=== PATIENT | female | born 1975 | race Two or more races ===

== ENCOUNTER 2020-03-08 16:14 | Emergency (ER) | payer OTHER ==
[~2020-03-08] VITALS: Ht 154.9 cm; Wt 90.7 kg
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
[2020-03-08] MEDS ORDERED: Methocarbamol 750mg tab ORAL ONE (17:00)
[2020-03-08] MEDS ORDERED: Ketorolac 30mg Inj IM ONE (17:00)
[2020-03-08 17:33] VITALS: BP 129/79
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
[2020-03-08] MEDS ORDERED: ROBAXIN-500MG ORAL (18:23)
[2020-03-08] MEDS ORDERED: LIDODERM700 M1 TOPIC (18:23)
[2020-03-08] MEDS ORDERED: IBU800 MG PO (18:23)
[2020-03-08 18:35] VITALS: BP 133/72
--- NOTE | 2020-03-08 18:35 | NUR ---
ED Nurse Note: Pt cleared by health care Provider for discharge. DC instructions/prescription was given and explained to pt and verbalized understanding of teachings. All medical deviecs such as ID band removed. Pt is AAO x4, ambulatory and left with all personal belongings.
== END 2020-03-08 18:35 | disposition home or self-care (01) ==
LOC: EMR 16:25
DX: S20.212A Contusion of left front wall of thorax, initial encounter (principal); T14.8XXA Other injury of unspecified body region, initial encounter; V43.52XA Car driver injured in collision with other type car in traffic accident, initial encounter; Y92.411 Interstate highway as the place of occurrence of the external cause
CPT/HCPCS: 71250; 74176; 96372; 99284; J1885